=== PATIENT | male | born 1985 | race Caucasian/White ===

== ENCOUNTER → 2020-11-23 | Outpatient (CLI) | payer OTHER ==
--- NOTE | 2020-11-23 14:42 | CT ---
EXAMINATION TYPE: CT chest abdomen wo con DATE OF EXAM: 11/23/2020 COMPARISON: None HISTORY: 35-year-old male R06.2, shortness of breath, R10.9, abdominal pain. Stomach pains and coughi ng up blood TECHNIQUE: Contiguous axial scanning of the chest and abdomen without IV contrast. Coronal and sagitt al reconstructions performed. CT DLP: 632.4 mGycm Automated exposure control for dose reduction was used. FINDINGS: CHEST: Heart normal size without pericardial effusion. Mild LAD coronary artery calcifications are present. Borderline ectatic aortic root at 3.5 cm. Conventional arch vessel branching anatomy. No thoracic lymphadenopathy by CT size criteria. No consolidation or pleural effusion. ABDOMEN: Liver mildly enlarged at 18.2 cm. Otherwise, noncontrast appearance of the liver, gallbladder, adrenal glands, kidneys, and pancreas sh ow no gross abnormal body. Spleen mildly enlarged at 14.1 cm with a small anterior splenule. No dilated small bowel, free fluid, or free air. Scattered nonenlarged and borderline to mildly enlarged mesenteric lymph nodes measuring up to 1.1 cm , refer to coronal image 31. Normal appendix. Mild to moderate stool burden. No pericolonic inflammatory change. The pelvis is not imaged. BONES: There are bilateral L5 pars defects with trace grade 1 anterolisthesis at L5-S1. IMPRESSION: 1. NO ACUTE PULMONARY PROCESS. MINIMAL LAD CORONARY ARTERY CALCIFICATIONS. 2. MILD HEPATOSPLENOMEGALY (LIVER 18.2 CM AND SPLEEN 14.1 CM). 3. SOME SCATTERED NONENLARGED AND BORDERLINE TO MILDLY ENLARGED MESENTERIC LYMPH NODES MEASURING UP T O 1.1 CM PROBABLY REACTIVE. CONSIDER A MILD MESENTERIC ADENITIS. 4. BILATERAL L5 PARS DEFECTS. CONSIDER OUTPATIENT NEUROSURGERY REFERRAL.
== END | disposition home or self-care (01) ==
LOC: RADCTMAIN 10:02
DX: I25.10 Atherosclerotic heart disease of native coronary artery without angina pectoris (principal)
CPT/HCPCS: 71250; 74150

== ENCOUNTER → 2021-01-28 | Outpatient (CLI) | payer OTHER ==
--- NOTE | 2021-01-28 09:21 | US ---
EXAMINATION TYPE: US abdomen limited DATE OF EXAM: 01/28/2021 COMPARISON: CT 2020 CLINICAL HISTORY: R16.2 Hepatomegaly with splenomegaly. Abdomen pain, enlarged liver and spleen on re cent CT EXAM MEASUREMENTS: Liver Length: 17.2 cm, measurement may under represent the actual size due to technique Gallbladder Wall: 0.2 cm CBD: 0.4 cm Right Kidney: 11.6 x 5.7 x 5.8 cm Spleen: 12.5cm Pancreas: visualized portions wnl, limited by overlying midline bowel gas Liver: measures in upper limits of normal Gallbladder: wnl Evidence for sonographic Forman's sign: no CBD: wnl Right Kidney: wnl Spleen: wnl IMPRESSION: Hepatosplenomegaly noted on patient's CT may be under represented on today's study, or th ere may be some improvement in size exam is limited.
== END | disposition home or self-care (01) ==
LOC: RADUSWWP 08:30
DX: R16.2 Hepatomegaly with splenomegaly, not elsewhere classified (principal)
CPT/HCPCS: 76705

== ENCOUNTER 2021-03-08 08:48 | Day surgery (SDC) | payer OTHER ==
[2021-03-07 10:24] VITALS: BMI 29.0
[~2021-03-08 08:48] MED LIST: LACTATED RINGERS 1,000 ML IV SCH
[2021-03-08 09:14] VITALS: TEMP 98.2
[2021-03-08] MEDS ORDERED: LIDOCAINE 1% INJ 10MG/ML (20 ML MDV) ONE (10:25)
[2021-03-08] MEDS ORDERED: fentaNYL (PF) 50 MCG/ML 2 ML AMP ONE (10:25)
[2021-03-08] MEDS ORDERED: PROPOFOL 10 MG/ML 20 ML VIAL IV ONE (10:25)
[2021-03-08] MEDS ORDERED: MIDAZOLAM 2 MG/2 ML VIAL ONE (10:25)
--- NOTE | 2021-03-08 10:46 | P.PCN ---
Date of Procedure: 03/08/21 Procedure(s) Performed: Brief history: Patient is a pleasant 35-year-old white male scheduled for an elective upper endoscopy as well as colonoscopy as a part of evaluation of epigastric pain, nausea vomiting, change in bowel habits for the last several months duration. Procedure performed: Esophagogastroduodenoscopy with biopsy Colonoscopy Preoperative diagnosis: Abdominal pain/nausea vomiting Change in bowel habits Anesthesia: MAC Procedure: After informed consent was obtained from the patient was brought into the endoscopy unit and IV sedation was administered by anesthesia under continuous monitoring. Initially upper endoscopy was done. The Olympus GF 160 video endoscope was inserted inserted into the mouth and esophagus intubated without any difficulty and was gradually advanced into the stomach and duodenum and carefully examined. The bulb had mild duodenitis and second part of the duodenum appeared normal. The scope was then withdrawn into the stomach adequately insufflated with air and upon careful examination the antrum and mild diffuse gastritis and biopsies were done from this area. The body, cardia and fundus appeared normal. The scope was then withdrawn into the esophagus. The GE junction was located at 40 cm to the incisors. It appeared regular with a 2 superficial erosions consistent with LA grade B reflux esophagitis. Rest of the esophagus appeared normal. Patient tolerated the procedure well. At this time the patient continued to remain sedation. Initial digital rectal examination was normal. Olympus CF 160 video colonoscope was then inserted into the rectum and gradually advanced to the cecum without any difficulty. Careful examination was performed as the scope was gradually being withdrawn. The prep was excellent. The cecum, ascending colon, transverse colon, descending colon, sigmoid colon and rectum appeared normal. Retroflexion was performed in the rectum and no lesions were noted. Patient tolerated the procedure well. Impression: 1. Upper endoscopy revealed mild diffuse antral gastritis, mild duodenitis and LA grade B reflux esophagitis 2. Colonoscopy was within normal limits with no evidence of colitis or colorectal neoplasia Recommendations: Findings of this examination were discussed with the patient as well as his family. He was advised to follow with the biopsy results. He will continue with omeprazole 20 mg daily and follow antireflux measures.
[2021-03-08 10:53] VITALS: BP 123/77; RESP 20
[2021-03-08 11:27] VITALS: PULSE 70
== END 2021-03-08 12:10 | disposition home or self-care (01) ==
LOC: ORWHC2ENDO 08:48
PROVIDERS: ATTEND Internal Medicine Gastroenterology
DX: K29.50 Unspecified chronic gastritis without bleeding (principal); R19.4 Change in bowel habit; Z79.899 Other long term (current) drug therapy; Z88.0 Allergy status to penicillin; Z91.041 Radiographic dye allergy status
CPT/HCPCS: 88305; 88342; 45378; 43239; J2250; J2001; J3010; J2704

== ENCOUNTER 2021-06-11 10:18 | Emergency (ER) | payer OTHER ==
[2021-06-11 10:24] VITALS: BP 137/78; PULSE 89; RESP 18; TEMP 97.7
[2021-06-11] MEDS ORDERED: KETOROLAC 15 MG/ML 1 ML VIAL IM STA (10:48)
--- NOTE | 2021-06-11 11:01 | ED ---
General Adult HPI - General Chief complaint: Extremity Problem,Nontraumatic Stated complaint: shoulder pain Time Seen by Provider: 06/11/21 10:22 Source: patient, RN notes reviewed, old records reviewed Mode of arrival: ambulatory Limitations: physical limitation - History of Present Illness Initial comments: Patient is a 35-year-old male with past medical history remarkable for progressively worsening left shoulder pain presents emergency Department complaining of worsening left shoulder pain over the last 3 days or so. He states he has been dealing with this pain for at least a month. 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 States that he initially noticed it near his elbow but now it is primarily in the anterior aspect and occasionally posterior aspect of his left shoulder. His pain with any motion of the left shoulder. Denies any trauma. States he has not been working out of the last month. States he is demonstrating wrestling use but not performing them. States he awoke 3 days ago was worsening pain which is gotten worse until today. Had outpatient x-rays which showed "a calcification of some sort." Presents emergency department for further evaluation. He has been on muscle relaxers, ibuprofen at home for pain control without much effect. States he doesn't take the muscle relaxers anymore or the [place] that he has been prescribed. Like to be evaluated. Denies any sensory deficits in the left upper extremity. Denies any other acute complaints at this time. No history shoulder surgery. No history of rotator cuff issues. - Related Data Home Medications Medication Instructions Recorded Confirmed Diclofenac Potassium [Cataflam] 50 mg PO TID PRN 06/11/21 06/11/21 methocarbamoL [Methocarbamol] 1,500 mg PO TID 06/11/21 06/11/21 Allergies Allergy/AdvReac Type Severity Reaction Status Date / Time amoxicillin Allergy Unknown THROAT Verified 06/11/21 11:31 SWELLING iodine Allergy Unknown SHELL FISH Verified 06/11/21 11:31 ALLERGY-THROAT SWELLING shellfish derived [Shellfish] Allergy Unknown THROAT Verified 06/11/21 11:31 SWELLING Review of Systems ROS Statement: Those systems with pertinent positive or pertinent negative responses have been documented in the HPI. Review of Systems: CONST: Denies fever EYES: Denies blurry vision ENT: Denies nasal congestion C/V: Denies Chest pain RESP: Denies shortness of breath GI: Denies abdominal pain : Denies dysuria SKIN: Denies rash. MSK: Endorses left shoulder pain. NEURO: Denies headache ROS Other: All systems not noted in ROS Statement are negative. Past Medical History Past Medical History: No Reported History History of Any Multi-Drug Resistant Organisms: None Reported Past Surgical History: Orthopedic Surgery Additional Past Surgical History / Comment(s): Left knee surgery Past Psychological History: No Psychological Hx Reported Smoking Status: Never smoker Past Alcohol Use History: None Reported Past Drug Use History: Marijuana General Exam - General Exam Comments Initial Comments: General: Appears in mild distress secondary to left shoulder pain. HEAD: Normal with no signs of head trauma. EYES: EOMI ENT: Hearing is grossly intact. RESPIRATORY: Clear breath sounds bilaterally. C/V: Regular rate and rhythm. S1 and S2 auscultated, no edema, peripheral pulses 2+ and intact throughout. Neurovascularly intact in the left upper extremity. ABD: Abd is soft, nontender, nondistended EXT: His range of motion of the left shoulder secondary to pain. He does have pain over the left before meals joint as well as the anterior shoulder. He was to be affecting the shoulder girdle, likely involving the rotator cuff. No obvious deformities. Difficult for full exam secondary to pain. SKIN: No rashes or lesions observed on exposed skin. NEURO: Alert and oriented 4. Neurovascularly intact in left upper extremity. Limitations: physical limitation Course Vital Signs 06/11/21 10:19 Temperature 97.7 F Pulse Rate 89 Respiratory 18 Rate Blood Pressure 137/78 O2 Sat by Pulse 99 Oximetry Medical Decision Making - Medical Decision Making Based on patient's presentation and physical exam, I do suspect that the patient has a chronic rotator cuff injury to the left shoulder does not recently been worked up. He may require MRI or ultrasound with orthopedic follow-up. I did discuss with him this. He was in agreement. He will be given a dose of IM Toradol here as well as an x-rays we have no access to the outside facility X- rays. He will also be given a sling. X-ray revealed external artifacts projecting over the shoulder which appears to be his gown. There is mild before meals joint also arthritis. No acute rashes or abnormalities seen. On reevaluation, patient some pain. I discussed results with him. He believe he requires orthopedic follow-up. He was in agreement this plan. He will be given one dose of pain medication. Patient has [place] as at home already and he will continue to take those. I instructed the patient to follow up with their PCP in the next 3 days. I provided contact information for follow up with Dr. Monsalve. I explained that the patient should return to the emergency department if they experience any worsening symptoms. Strict return precautions were discussed with the patient. The patient expressed understanding of these instructions. I answered all questions that the patient had. The patient was discharged home in fair condition with their prescriptions and follow up information. Disposition Clinical Impression: Shoulder pain, left, Rotator cuff injury Disposition: HOME SELF-CARE Condition: Fair Instructions (If sedation given, give patient instructions): Rotator Cuff Injury (ED) Is patient prescribed a controlled substance at d/c from ED?: No Referrals: [facility],Clinic [Primary Care Provider] - 1-2 days Phil Monsalve DO [Doctor of Osteopathic Medicine] - 1-2 days
--- NOTE | 2021-06-11 13:04 | XR ---
EXAMINATION TYPE: XR shoulder complete LT, 3 views DATE OF EXAM: 06/11/2021 Comparison: None Clinical History: 35-year-old male acute on chronic left shoulder pain Findings: Mild degenerative joint space narrowing at the acromioclavicular joint. Subacromial space is observed . Prominent overlying external artifacts are noted. No tendinous or bursal calcifications allowing fo r these artifacts. No acute fracture, subluxation, dislocation. Impression: External artifacts projecting over the shoulder. Mild AC joint OA. No acute osseous abnormality seen.
[2021-06-11] MEDS ORDERED: MORPHINE SULFATE 4 MG/ML SYRINGE IM STA (13:14)
== END 2021-06-11 13:33 | disposition home or self-care (01) ==
LOC: EC 10:18
DX: S49.82XA Other specified injuries of left shoulder and upper arm, initial encounter (principal); F12.90 Cannabis use, unspecified, uncomplicated; X58.XXXA Exposure to other specified factors, initial encounter
CPT/HCPCS: 99283; 96372 ×2; 73030; J2270; J1885

== ENCOUNTER → 2023-10-12 | Outpatient (CLI) | payer OTHER ==
[2023-10-12 20:02] LABS: Albumin 4.7 g/dL (3.8-4.9); Glucose 84 mg/dL (70-110)
[2023-10-12 20:05] LABS: Estradiol <20.0 pg/mL
[2023-10-12 20:16] LABS: Follicle Stimulating Hormone 0.4 mIU/mL; Luteinizing Hormone 1.6 mIU/mL
== END | disposition home or self-care (01) ==
LOC: LABWHC1 13:55
PROVIDERS: ATTEND Urology
DX: N46.8 Other male infertility (principal)
CPT/HCPCS: 36415; 82040; 82670; 82947; 83001; 83002; 84146; 84270; 84403; 84436; 84443; 84479

== ENCOUNTER → 2023-10-12 | Outpatient (CLI) | payer OTHER ==
[2023-10-12 19:20] LABS: Basophils # (A) 0.03 X 10*3/uL (0.00-0.10); Basophils % (A) 0.4 %; Eosinophils # (A) 0.11 X 10*3/uL (0.04-0.35); Eosinophils % (A) 1.4 %; HCT 46.6 % (39.6-50.0); HGB 15.3 g/dL (13.0-17.0); Lymphocytes # (A) 1.68 X 10*3/uL (0.90-5.00); Lymphocytes % (A) 20.8 %; MCH 28.4 pg (27.0-32.0); MCHC 32.8 g/dL (32.0-37.0); MCV 86.6 FL (80.0-97.0); Mean Platelet Volume 12.1 FL (9.5-12.2); Monocytes # (A) 0.54 X 10*3/uL (0.20-1.00); Monocytes % (A) 6.7 %; NRBC Per 100 WBC 0 X 10*3/uL (0.00-0.01); Neutrophils # (A) 5.64 X 10*3/uL (1.80-7.70); Platelet Count 211 X 10*3/uL (140-440); RBC 5.38 X 10*6/uL (4.40-5.60); RDW 12.3 % (11.5-14.5); WBC 8.06 X 10*3/uL (4.50-10.00)
[2023-10-12 19:46] LABS: Blood Urea Nitrogen 17.3 mg/dL (9.0-27.0); Calcium 9.6 mg/dL (8.7-10.3); Carbon Dioxide 24.4 mmol/L (21.6-31.8); Chloride 104 mmol/L (96-109); Glucose 84 mg/dL (70-110); Potassium 4.5 mmol/L (3.5-5.5); Sodium 139 mmol/L (135-145)
== END | disposition home or self-care (01) ==
LOC: LABWHC1 13:48
PROVIDERS: ATTEND Orthopaedic Surgery
DX: Z01.812 Encounter for preprocedural laboratory examination (principal); M23.92 Unspecified internal derangement of left knee
CPT/HCPCS: 36415; 80048; 85025

== ENCOUNTER 2023-10-30 08:19 | Day surgery (SDC) | payer OTHER ==
--- NOTE | 2023-10-29 08:26 | P.HPOR ---
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 He's having pain with weightbearing activities. He notes intermittent locking and giving way. He's tried educations along with an injection without much relief. He has history of left ACL reconstruction previously. Review of Systems Per HPI Past Medical History Past Medical History: No Reported History Additional Past Medical History / Comment(s): chronic left knee pain, back pain, migraines History of Any Multi-Drug Resistant Organisms: None Reported, MRSA Date of last positivie culture/infection: 1999 MDRO Source:: right elbow Past Surgical History: Orthopedic Surgery Additional Past Surgical History / Comment(s): Left knee surgery Past Anesthesia/Blood Transfusion Reactions: No Reported Reaction Smoking Status: Never smoker Medications and Allergies Home Medications Medication Instructions Recorded Confirmed Type Methylphenidate HCl 30 mg PO DAILY 10/28/23 10/28/23 History [Methylphenidate ER] Methylphenidate HCl 10 mg PO HS 10/28/23 10/28/23 History [Methylphenidate HCl ER] Allergies Allergy/AdvReac Type Severity Reaction Status Date / Time amoxicillin Allergy Unknown THROAT Verified 10/28/23 10:12 SWELLING iodine Allergy Unknown SHELL FISH Verified 10/28/23 10:27 ALLERGY-THROAT SWELLING shellfish derived [Shellfish] Allergy Unknown THROAT Verified 10/28/23 10:12 SWELLING Physical Examination - Knee left Appearance: effusion Effusion grade: grade 1 Tenderness with palpation: anterior, medial Pain: with flexion ROM: extension: -10 degrees ROM: flexion: 120 degrees Crepitus with motion: Yes Strength: extension: 5/5 Strength: flexion: 5/5 Meniscal tests: medial meniscal tests: positive, medial joint line pain: positive Results Patient is a well-developed well-nourished male approximate 6 foot 1, 220 pounds of mesomorphic habitus. HEENT exam is nonfocal, neck is supple. He has painless passive motion of the left hip. Straight leg raise is negative. He is tender about the medial joint line of the left knee. Collaterals are stable, Dawna is negative, Vicente's elicits medial pain. His distal neurovascular exam appears intact in the left lower extremity. - Diagnostic results Knee MRI: image reviewed (MRI of the left knee by report shows evidence of a posterior medial meniscal tear along with previous ACL reconstruction.) Assessment and Plan Assessment: Left knee internal derangement with symptomatic medial meniscal tear History of left knee ACL reconstructionion along with treatment options. Plan: At this point he is quite symptomatic having pain and mechanical symptoms in the left knee despite conservative measures. After a thorough discussion he opts to proceed with surgery. We'll plan to proceed with left knee arthroscopy with probable partial medial meniscectomy. We will likely perform that as an outpatient procedure. Risks and benefits are discussed at length in layman's terms.
[~2023-10-30 08:19] MED LIST changes: -LACTATED RINGERS 1,000 ML IV SCH; +MIDAZOLAM 2 MG/2 ML VIAL IV PRN; +SCOPOLAMINE 1 MG/72 HR PATCH TRANSDERM ONE
[2023-10-30] MEDS: DEXAMETHASONE SOD PHOSPHATE 4 MG/ML 1 ML VIAL IV ONE (08:55)
[2023-10-30] MEDS: ONDANSETRON 4 MG/2 ML VIAL IVP ONE (08:55)
[2023-10-30] MEDS: LACTATED RINGERS 1,000 ML IV SCH (08:56)
[2023-10-30] MEDS: IV FLUID CONTINUATION 1,000 ML IV ONE (09:03)
[2023-10-30] MEDS ORDERED: LIDOCAINE 1% INJ 10MG/ML (20 ML MDV) ONE (09:13)
[2023-10-30] MEDS ORDERED: fentaNYL (PF) 50 MCG/ML 2 ML AMP ONE (09:13)
[2023-10-30] MEDS ORDERED: SUCCINYLCHOLINE CHLORIDE 200 MG/10 ML VIAL IV ONE (09:13)
[2023-10-30] MEDS ORDERED: PROPOFOL 10 MG/ML 20 ML VIAL IV ONE (09:13)
[2023-10-30] MEDS ORDERED: MIDAZOLAM 2 MG/2 ML VIAL ONE (09:13)
--- NOTE | 2023-10-30 10:12 | P.OP ---
Date of Procedure: 10/30/23 Preoperative Diagnosis: Left knee internal derangement Postoperative Diagnosis: Left knee posterior medial meniscal tear Procedure(s) Performed: Left knee arthroscopic partial medial meniscectomy [facility] Surgeon: Alin Forte Estimated Blood Loss (ml): 10 Pathology: none sent Condition: stable Disposition: PACU Indications for Procedure: The patient is a 38-year-old male who presents with progressive left knee pain and mechanical symptoms despite conservative measures. A discussion of the risks and benefits of operative intervention versus continued conservative measures was made with the patient. He opted to proceed with surgery. Operative risks include infection, neurovascular injury, development of blood clots, possible incomplete resolution of symptoms, possible worsening of symptoms and need for subsequent procedures was discussed. Informed consent was obtained. Operative Findings: As below Description of Procedure: The patient was brought to the operating room, and after induction of general a nesthesia examined the right knee. Collaterals were stable, Dawna was negative, and posterior drawer was negative. The right lower extremity was prepped and draped in a normal fashion. A superior lateral portal was made through a 3 mm skin incision superior and lateral to the patella. This was used for outflow. A lateral portal was made through a 5 mm vertical skin incision lateral to the patella tendon above the joint line. Diagnostic arthroscopy was performed. On inspection of the medial compartment, a complex tear involving the posterior medial meniscus in the white-red junction was noted. This was debrided back to stable base with straight baskets and a motorized shaver. Remaining medial meniscus was stable and intact. On inspection of the notch, the anterior cruciate ligament graft appeared to be intact. On inspection of the lateral compartment, no significant meniscal or cartilage pathology was noted. On inspection of the patellofemoral articulation, grade 2-3 chondral changes were noted involving the femoral trochlea. The gutters were clear debris. The knee was then thoroughly irrigated. The portals were closed with Steri-Strips. A sterile dressing was applied in addition to a compression stocking. The patient was awoken from general anesthesia and transferred to recovery room in good condition. Blood loss was estimated at 10 mL. No complications were incurred.
[2023-10-30 10:13] VITALS: TEMP 97.3
[2023-10-30] MEDS: HYDROmorphone 0.5 MG/0.5 ML SYRINGE IVP PRN (10:28)
[2023-10-30 12:18] VITALS: BP 122/69; PULSE 67; RESP 18
== END 2023-10-30 12:18 | disposition home or self-care (01) ==
LOC: OR 08:19
PROVIDERS: ATTEND Orthopaedic Surgery
DX: S83.242A Other tear of medial meniscus, current injury, left knee, initial encounter (principal); G89.29 Other chronic pain; G43.909 Migraine, unspecified, not intractable, without status migrainosus; F90.9 Attention-deficit hyperactivity disorder, unspecified type; F12.90 Cannabis use, unspecified, uncomplicated; Z79.899 Other long term (current) drug therapy; Z88.8 Allergy status to other drugs, medicaments and biological substances; Z91.041 Radiographic dye allergy status; Z98.890 Other specified postprocedural states; Z91.013 Allergy to seafood; X58.XXXA Exposure to other specified factors, initial encounter
CPT/HCPCS: 29881; J2250; J0330; J1100; J0690; J2405; J2001; J3010; J2704; J1170

== ENCOUNTER 2024-08-09 10:45 | Day surgery (SDC) | payer OTHER ==
[~2024-08-09 10:45] MED LIST changes: +LIDOCAINE 1% (10MG/ML) FOR IV START INTRADERMA PRN; -MIDAZOLAM 2 MG/2 ML VIAL IV PRN; +ONDANSETRON 4 MG/2 ML VIAL IVP PRN; -SCOPOLAMINE 1 MG/72 HR PATCH TRANSDERM ONE
[2024-08-09 11:29] VITALS: TEMP 97
[2024-08-09] MEDS: IV FLUID CONTINUATION 1,000 ML IV ONE (11:29)
[2024-08-09] MEDS: LACTATED RINGERS 1,000 ML IV SCH (11:32)
[2024-08-09] MEDS ORDERED: KETAMINE HCL IN 0.9 % NACL 50 MG/5 ML SYRINGE ONE (12:14)
[2024-08-09] MEDS ORDERED: PROPOFOL 10 MG/ML 20 ML VIAL IV ONE (12:14)
--- NOTE | 2024-08-09 12:20 | P.GSHP ---
History of Present Illness H&P Date: 08/09/24 Chief Complaint: Abdominal pain, change in bowel habits, rectal bleeding 39-year-old male here for colonoscopy. Last upper and lower endoscopy 3.5 years ago. Patient with complaints of intermittent diarrhea, nausea, rectal bleeding, diarrhea for the last several years. 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 Abdominal discomfort is mid abdomen. Previously found to have H. pylori positive biopsies. Was treated without any improvement in his symptoms. Past Medical History Past Medical History: No Reported History Additional Past Medical History / Comment(s): constant stomach pain, loose stools, History of Any Multi-Drug Resistant Organisms: MRSA Date of last positivie culture/infection: unk MDRO Source:: elbow Past Surgical History: Orthopedic Surgery Additional Past Surgical History / Comment(s): Left knee surgery Past Anesthesia/Blood Transfusion Reactions: No Reported Reaction Smoking Status: Never smoker - Past Family History Father Family Medical History: No Reported History Medications and Allergies Home Medications Medication Instructions Recorded Confirmed Type Methylphenidate HCl 30 mg PO 1000 10/28/23 08/09/24 History [Methylphenidate ER] Methylphenidate HCl 10 mg PO 1300 10/28/23 08/09/24 History [Methylphenidate HCl ER] Amino Acids 700 mg PO DIRECTED 08/02/24 08/09/24 History Allergies Allergy/AdvReac Type Severity Reaction Status Date / Time amoxicillin Allergy Unknown THROAT Verified 08/09/24 11:30 SWELLING iodine Allergy Unknown SHELL FISH Verified 08/09/24 11:30 ALLERGY-THROAT SWELLING shellfish derived [Shellfish] Allergy Unknown THROAT Verified 08/09/24 11:30 SWELLING Surgical - Exam Vital Signs Temp Pulse Resp BP Pulse Ox 97.0 F L 88 18 137/77 96 08/09/24 11:28 08/09/24 11:28 08/09/24 11:28 08/09/24 11:28 08/09/24 11:28 Physical exam: General: Well-developed, well-nourished HEENT: Normocephalic, sclerae nonicteric Abdomen: Nontender, nondistended Extremities: No edema Neuro: Alert and oriented Assessment and Plan (1) Rectal bleeding Narrative/Plan: 39-year-old male with intermittent rectal bleeding, change in bowel habits, and abdominal pain. Will proceed with colonoscopy at this time. Current Visit: Yes Status: Acute Code(s): K62.5 - HEMORRHAGE OF ANUS AND RECTUM SNOMED Code(s): 55851702
--- NOTE | 2024-08-09 12:35 | P.PCN ---
Date of Procedure: 08/09/24 Procedure(s) Performed: PREOPERATIVE DIAGNOSIS: Rectal bleeding, diarrhea, abdominal pain POSTOPERATIVE DIAGNOSIS: Mild diverticulosis PROCEDURE: Colonoscopy with random biopsy ANESTHESIA: MAC SURGEON: Ag Charles M.D. SPECIMENS: Ileum, random colon, stool culture ENDOSCOPIC PROCEDURE: The patient was placed on the endoscopy table in the left decubitus position. The Olympus colonoscope was inserted into the anus and passed under direct visualization to the base of the cecum. The appendiceal orifice was visualized. The ileum was inspected. No abnormalities were visible. Biopsies were taken of the ileum. From that point the scope was slowly withdrawn inspecting all surfaces carefully. There were no neoplastic inflammatory or polypoid lesions throughout the cecum, ascending, transverse, descending, sigmoid and rectum. There was mild scattered diverticulosis noted. Random biopsies were taken throughout the colon as well looking for microscopic colitis. I also took stool fluid for culture. Digital rectal examination was normal. The patient was taken to the recovery room in stable condition per anesthesia guidelines. RECOMMENDATIONS: Await biopsy results and culture. If studies negative consider GI outpatient workup for IBS versus IBD.
[2024-08-09 13:07] VITALS: BP 134/81; PULSE 75; RESP 18
[2024-08-10 07:21] LABS: Cryptosporidium Antigen Negative (Negative)
== END 2024-08-09 13:38 | disposition home or self-care (01) ==
LOC: ORWHC2ENDO 10:45
PROVIDERS: ATTEND Surgery
DX: K57.30 Diverticulosis of large intestine without perforation or abscess without bleeding (principal); K62.5 Hemorrhage of anus and rectum; Z88.0 Allergy status to penicillin; Z88.8 Allergy status to other drugs, medicaments and biological substances
CPT/HCPCS: 88305; 87329; 87328; 45380; J2704

== ENCOUNTER 2024-10-14 12:13 | Day surgery (SDC) | payer OTHER ==
[2024-10-12 13:55] VITALS: BMI 30.3
[~2024-10-14 12:13] MED LIST changes: +LACTATED RINGERS 1,000 ML IV SCH; -LIDOCAINE 1% (10MG/ML) FOR IV START INTRADERMA PRN; -ONDANSETRON 4 MG/2 ML VIAL IVP PRN
[2024-10-14] MEDS: IV FLUID CONTINUATION 1,000 ML IV ONE (12:22)
[2024-10-14 13:17] VITALS: TEMP 97.9
[2024-10-14] MEDS ORDERED: PROPOFOL 10 MG/ML 20 ML VIAL IV ONE (13:55)
--- NOTE | 2024-10-14 14:04 | P.PCN ---
Date of Procedure: 10/14/24 Procedure(s) Performed: BRIEF HISTORY: Patient is a 39-year-old, pleasant male scheduled of endoscopy as a part evaluation of severe epigastric pain associate with postprandial diarrhea for the last several months duration. Colonoscopy in July [address] Charles was unremarkable. He went to the emergency room 2 weeks ago and was treated symptomatically and discharged home.. He is scheduled for an upper endoscopy to evaluate further.,. PROCEDURE PERFORMED: Esophagogastroduodenoscopy with biopsy PREOPERATIVE DIAGNOSIS: Severe epigastric pain for the last few months duration. IV sedation per anesthesia. PROCEDURE: After informed consent was obtained, the patient was brought into the endoscopy unit. IV sedation was administered by Anesthesia under continuous monitoring. Initially the Olympus GIF-140 video endoscope was inserted into the mouth. Esophagus intubated without any difficulty. It was gradually advanced into the stomach and duodenum and carefully examined. The bulb and the second part of the duodenum appeared normal. The scope at this time was withdrawn to the stomach, adequately insufflated with air, and upon careful examination, mucosa of the antrum, had erosions consistent with gastritis. There was a 2 cm clean-based antral ulcer along the incisura angularis which was biopsied. Rest of the body, cardia and the fundus appeared normal. The scope was then withdrawn into the esophagus. Small hiatal hernia noted. The GE junction was located at 39 cm from the incisors. There were linear erosions noted in the distal esophagus consistent with LA grade B reflux esophagitis. Rest of the esophagus appeared normal and the patient tolerated the procedure well. IMPRESSION: 1. 2 cm clean-based antral ulcer along the incisura angularis status post biopsy. 2. Antral erosive gastritis 3. Small hiatal hernia and LA grade B reflux esophagitis.. RECOMMENDATIONS: The findings of this examination were discussed with the patient as well as his family. He was advised to follow-up with the biopsy results. He will continue with omeprazole 20 mg twice daily and avoid NSAIDs. Will plan on repeat upper endoscopy in 3 to 4 months to document ulcer healing. Follow-up in the office in 1 month.
[2024-10-14 14:54] VITALS: BP 122/78; PULSE 77; RESP 20
== END 2024-10-14 14:57 | disposition home or self-care (01) ==
LOC: ORWHC2ENDO 12:13
PROVIDERS: ATTEND Internal Medicine Gastroenterology
DX: K29.60 Other gastritis without bleeding (principal); K21.00 Gastro-esophageal reflux disease with esophagitis, without bleeding; K25.9 Gastric ulcer, unspecified as acute or chronic, without hemorrhage or perforation; D72.820 Lymphocytosis (symptomatic); K44.9 Diaphragmatic hernia without obstruction or gangrene; Z79.899 Other long term (current) drug therapy; Z88.0 Allergy status to penicillin; Z88.8 Allergy status to other drugs, medicaments and biological substances; Z91.013 Allergy to seafood
CPT/HCPCS: 88305; 88342; 43239; J2704